=== PATIENT | male | born 1980 | race African-American/Black ===

== ENCOUNTER 2016-12-03 12:21 | Emergency (ER) | payer OTHER ==
[~2016-12-03] VITALS: Ht 182.9 cm; Wt 109.1 kg
[2016-12-03 12:22] VITALS: BP 149/77
[2016-12-03] MEDS ORDERED: MUCI3TAB PO (12:42)
[2016-12-03] MEDS ORDERED: FLON1SPR (13:31)
[2016-12-03] MEDS ORDERED: BENZ200C53 PO (13:31)
[2016-12-03] MEDS ORDERED: ALBU17IN2 INH (13:31)
[2016-12-03] MEDS ORDERED: PRED20TA PO (13:31)
== END 2016-12-03 13:47 | disposition home or self-care (01) ==
LOC: M ED 12:21
DX: J20.9 Acute bronchitis, unspecified (principal); Z72.0 Tobacco use